=== PATIENT | female | born 1985 | race Asian ===

== ENCOUNTER 2020-07-27 05:18 | Inpatient (IN) | payer OTHER ==
[2020-07-27] MEDS ORDERED: DEXTROSE 5%-LACTATED RINGERS 500 ML IV ONE ×2 (06:00→07:00)
[2020-07-27] MEDS ORDERED: ACETAMINOPHEN 1000 MG/100 ML VIAL (NON FORMULARY) IVPB ONE ×2 (06:39→12:30)
[2020-07-27 07:14] LABS: BASO % 0.2 % (0-2.0); EOS % 0.6 % (0-4.5); HEMATOCRIT 38.4 % (32.4-45.2); HEMOGLOBIN 13.2 GM/dL (10.7-15.3); LYMPH % 7.7 % (8-40); MCH 31.1 pg (25.7-33.7); MCHC 34.3 g/dl (32.0-36.0); MEAN CELL VOLUME 90.5 fl (80-96); MEAN PLT VOLUME 7.1 fl (7.5-11.1); MONO % 6.9 % (3.8-10.2); NEUT % 84.6 % (42.8-82.8); PLATELET COUNT 238 K/MM3 (134-434); RBC 4.25 M/mm3 (3.60-5.2); RDW 13.5 % (11.6-15.6); WHITE BLOOD COUNT 17.8 K/mm3 (4.0-10.0)
[2020-07-27 07:29] LABS: CALCIUM 8.8 mg/dL (8.5-10.1)
[2020-07-27 07:30] LABS: BLOOD UREA NITROGEN 8.2 mg/dL (7-18)
[2020-07-27 07:33] LABS: CREATININE 0.5 mg/dL (0.55-1.3)
[2020-07-27 07:35] LABS: BILIRUBIN,TOTAL 0.4 mg/dL (0.2-1); TOT PROT 6.3 g/dl (6.4-8.2)
[2020-07-27 09:19] LABS: EPI CELLS >36 /uL (0-25.1); HYALINE CASTS 3 /uL (0-3.1); URINE APPEARANCE CLOUDY; URINE BACTERIA 203 /uL (0-1359); URINE BILIRUBIN NEGATIVE (NEGATIVE); URINE COLOR YELLOW; URINE GLUCOSE (UA) 1+ (NEGATIVE); URINE KETONE 3+ (NEGATIVE); URINE LEUK ESTERASE NEGATIVE (NEGATIVE); URINE NITRITE NEGATIVE (NEGATIVE); URINE PROTEIN NEGATIVE (NEGATIVE); URINE RBC 8 /uL (0-23.9); URINE UROBILINOGEN 0.2 mg/dL (0.2-1.0); URINE WBC 9 /uL (0-25.8)
[2020-07-27] MEDS ORDERED: SODIUM CHLORIDE 500 ML IV ONE (11:30)
[2020-07-27] MEDS ORDERED: ACETAMINOPHEN INJECTION 100 ML IVPB ONE ×3 (11:45→21:04)
[2020-07-27] MEDS ORDERED: SODIUM CHLORIDE 500 ML IV SCH (12:30)
[2020-07-27 13:49] LABS: BASO % 0.1 % (0-2.0); HEMATOCRIT 37.3 % (32.4-45.2); HEMOGLOBIN 12.2 GM/dL (10.7-15.3); MCH 30.3 pg (25.7-33.7); MCHC 32.8 g/dl (32.0-36.0); MEAN CELL VOLUME 92.4 fl (80-96); MEAN PLT VOLUME 7.5 fl (7.5-11.1); MONO % 8.1 % (3.8-10.2); NEUT % 89.8 % (42.8-82.8); PLATELET COUNT 225 K/MM3 (134-434); RBC 4.04 M/mm3 (3.60-5.2); RDW 13.5 % (11.6-15.6); WHITE BLOOD COUNT 19.9 K/mm3 (4.0-10.0)
[2020-07-27 14:04] LABS: INR 1.06 (0.83-1.09)
[2020-07-27 14:12] LABS: CALCIUM 8.8 mg/dL (8.5-10.1)
[2020-07-27 14:13] LABS: BLOOD UREA NITROGEN 5.9 mg/dL (7-18)
[2020-07-27 14:16] LABS: CREATININE 0.6 mg/dL (0.55-1.3)
[2020-07-27] MEDS ORDERED: PROMETHAZINE HCL 25 MG/1 ML VIAL IVPUSH ONE (15:45)
[2020-07-27] MEDS ORDERED: BUTORPHANOL TARTRATE 2 MG/ML VIAL IVPB ONE (15:45)
[2020-07-27] MEDS ORDERED: ELECTROLYTE-148 SOLN 1,000 ML IV SCH (15:45)
[2020-07-27] MEDS ORDERED: OXYTOCIN 30 UNITS in 0.9% NS 30 UNIT/500 ML INFUS.BAG IVPB SCH (15:45)
[2020-07-27] MEDS ORDERED: AMPICILLIN SODIUM 2 GM VIAL ONE (15:45)
[2020-07-27] MEDS ORDERED: AMPICILLIN - 2 GM in SODIUM CHLORIDE 100 ML IVPB ONE (16:00)
[2020-07-27] MEDS: ACETAMINOPHEN 1000 MG/100 ML VIAL (NON FORMULARY) IVPB PRN ×2 (16:20→20:45)
[2020-07-27] MEDS ORDERED: OXYTOCIN 30 UNITS in 0.9% NS 30 UNIT/500 ML INFUS.BAG IVPB ONE (16:38)
[2020-07-27 16:51] VITALS: BMI 26.3
[2020-07-27] MEDS ORDERED: PROMETHAZINE HCL 25 MG/1 ML VIAL ONE (17:20)
[2020-07-27] MEDS ORDERED: BUTORPHANOL TARTRATE 2 MG/ML VIAL ONE (17:20)
[2020-07-27] MEDS ORDERED: PCA PUMP NR ONE (19:19)
[2020-07-27] MEDS ORDERED: FENTANYL/BUPIVACAINE/NS/PF - PCEA - 50 ML DISP.SYRIN EP ONE (19:19)
[2020-07-27] MEDS ORDERED: AMPICILLIN SODIUM 1 GM VIAL ONE (19:26)
[2020-07-27] MEDS ORDERED: BUPIVACAINE HCL/PF 0.25% (2.5MG/ML) 10 ML VIAL ONE (19:45)
[2020-07-27] MEDS: AMPICILLIN - 1 GM in SODIUM CHLORIDE 100 ML IVPB SCH (19:45)
[2020-07-27] MEDS ORDERED: NALOXONE HCL 0.4 MG/ML VIAL IVPUSH PRN (20:05)
[2020-07-27] MEDS ORDERED: FENTANYL/BUPIVACAINE/NS/PF - PCEA - 50 ML DISP.SYRIN EP SCH (20:15)
[2020-07-27] MEDS ORDERED: CLINDAMYCIN 900 MG PREMIX IVPB 900 MG/50 ML BAG IVPB ONE ×2 (21:04→21:15)
[2020-07-27] MEDS ORDERED: GENTAMICIN SO4 80 MG/2 ML VIAL IVPB ONE (21:15)
[2020-07-27] MEDS ORDERED: GENTAMICIN SO4 80 MG/2 ML VIAL ONE (21:57)
[2020-07-27] MEDS ORDERED: OXYTOCIN 20 UNITS in 0.9% NS 20 UNIT/1,000 ML INFUS.BAG IV ONE (22:26)
[2020-07-27] MEDS ORDERED: PHENYLEPHRINE HCL 10 MG/1 ML SINGLE DOSE VIAL ONE (22:34)
[2020-07-27] MEDS ORDERED: ePHEDrine SULFATE 50 MG/1 ML AMPULE ONE (22:34)
[2020-07-27] MEDS: OXYTOCIN 20 UNITS in 0.9% NS 20 UNIT/1,000 ML INFUS.BAG IV SCH (23:18)
[2020-07-28] MEDS ORDERED: BENZOCAINE 28 GM HEMORRHOIDAL OINTMENT TP PRN (00:42)
[2020-07-28] MEDS ORDERED: WITCH HAZEL 50% (TUCKS) 40 PAD/JAR PAD TP PRN (00:42)
[2020-07-28] MEDS ORDERED: BISACODYL 10 MG SUPP.RECT RC PRN (00:42)
[2020-07-28] MEDS ORDERED: METHYLERGONOVINE MALEATE 0.2 MG/1 ML AMP IM PRN (00:42)
[2020-07-28] MEDS ORDERED: BENZOCAINE 20% 57 GM BOTTLE TP PRN (00:42)
[2020-07-28] MEDS ORDERED: PCA PUMP NR ONE (01:20)
[2020-07-28] MEDS: IBUPROFEN 600 MG TABLET (FP) PO PRN ×4 (02:06→20:30)
[2020-07-28] MEDS: ACETAMINOPHEN 325 MG TABLET (FP) PO PRN ×4 (02:06→20:27)
[2020-07-28 02:29] LABS: CORD BASE EXCESS -11.7 mmol/L (0-2); CORD HCO3 17.1 mmHg (20-29); CORD PCO2 49.1 mmHg (30-78); CORD pH 7.16 (7.14-7.44)
[2020-07-28] MEDS: CLINDAMYCIN 600MG PREMIX IVPB 600 MG/50 ML BAG IVPB SCH ×2 (02:48→10:00)
[2020-07-28] MEDS ORDERED: GENTAMICIN 80 MG PREMIXED IVPB 80 MG/100 ML BAG IVPB SCH (03:00)
[2020-07-28] MEDS ORDERED: CLINDAMYCIN 600MG PREMIX IVPB 600 MG/50 ML BAG IVPB SCH (03:00)
[2020-07-28] MEDS ORDERED: GENTAMICIN IVPB SCH (10:00)
[2020-07-28] MEDS ORDERED: SODIUM CHLORIDE IVPB SCH (10:00)
[2020-07-28] MEDS: FERROUS SO4 325 MG TABLET (FP) PO SCH ×2 (10:00→22:00)
[2020-07-28] MEDS: PRENATAL VITAMINS W/ FOLIC ACID TABLET (FP) PO SCH (10:23)
[2020-07-28] MEDS: AMPICILLIN - 1 GM in SODIUM CHLORIDE 100 ML IVPB SCH ×2 (17:38→17:39)
[2020-07-29 08:16] LABS: BASO % 0.7 % (0-2.0); EOS % 1.5 % (0-4.5); HEMATOCRIT 34.5 % (32.4-45.2); HEMOGLOBIN 11.2 GM/dL (10.7-15.3); LYMPH % 12.8 % (8-40); MCH 30.1 pg (25.7-33.7); MCHC 32.5 g/dl (32.0-36.0); MEAN CELL VOLUME 92.5 fl (80-96); MEAN PLT VOLUME 7.5 fl (7.5-11.1); MONO % 7.8 % (3.8-10.2); NEUT % 77.2 % (42.8-82.8); PLATELET COUNT 215 K/MM3 (134-434); RBC 3.73 M/mm3 (3.60-5.2); RDW 13.6 % (11.6-15.6); WHITE BLOOD COUNT 15.3 K/mm3 (4.0-10.0)
[2020-07-29] MEDS: PRENATAL VITAMINS W/ FOLIC ACID TABLET (FP) PO SCH (09:00)
[2020-07-29] MEDS: FERROUS SO4 325 MG TABLET (FP) PO SCH (09:00)
[2020-07-29] MEDS: OXYTOCIN 20 UNITS in 0.9% NS 20 UNIT/1,000 ML INFUS.BAG IV SCH (12:47)
[2020-07-29] MEDS: ACETAMINOPHEN 325 MG TABLET (FP) PO PRN (12:50)
[2020-07-29] MEDS: IBUPROFEN 600 MG TABLET (FP) PO PRN (12:50)
[2020-07-29 14:28] VITALS: BP 121/66; PULSE 74; TEMP 97.4
[2020-07-29] MEDS ORDERED: SENNOSIDES/DOCUSATE COMBO (SENNA PLUS) TABLET (UD) PO PRN (22:00)
[2020-07-30 07:55] LABS: POC NITRAZINE NEG
== END 2020-07-29 17:30 | disposition home or self-care (01) | DRG 560 ==
LOC: JDEL 05:18 → JLDR 14:55 → J3W 07-28 01:17
PROVIDERS: ADMIT Obstetrics & Gynecology; ATTEND Obstetrics & Gynecology
PROC: 10E0XZZ Delivery of Products of Conception, External Approach (ICD-10-PCS; principal; 2020-07-28)
PROC: 0KQM0ZZ Repair Perineum Muscle, Open Approach (ICD-10-PCS; 2020-07-28)
PROC: 10D07Z6 Extraction of Products of Conception, Vacuum, Via Natural or Artificial Opening (ICD-10-PCS; 2020-07-28)
DX: O41.1230 Chorioamnionitis, third trimester, not applicable or unspecified (principal); O70.1 Second degree perineal laceration during delivery; O42.92 Full-term premature rupture of membranes, unspecified as to length of time between rupture and onset of labor; Z3A.37 37 weeks gestation of pregnancy; Z37.0 Single live birth
CPT/HCPCS: 36415; 36600; 59409; 76819-TC; 80048; 80053; 81003; 82803; 82962; 83986-QW; 85025; 85610; 85730; 86780; 86850; 86900; 86901; 87077; 87086; 87186; C9803; J0131; U0003; U0005